=== PATIENT | male | born 1965 | race Caucasian/White ===

== ENCOUNTER 2024-02-16 14:23 | Emergency (ER) | payer MEDICAID ==
[~2024-02-16] VITALS: Ht 167.6 cm; Wt 82.0 kg
[2024-02-16 14:37] VITALS: BP 124/88; PULSE 75; RESP 16; TEMP 97.6; O2SAT 98
[2024-02-16] MEDS ORDERED: COMP1EAC MC (17:29)
[2024-02-16] MEDS ORDERED: NAPR-1176 MT (17:29)
[2024-02-16] MEDS ORDERED: APIX5TAB MT (17:42)
== END 2024-02-16 17:30 | disposition home or self-care (01) ==
LOC: ER 14:23
DX: I87.8 Other specified disorders of veins (principal); M79.605 Pain in left leg
CPT/HCPCS: 93971; 99284

== ENCOUNTER 2025-02-01 17:13 | Emergency (ER) | payer MEDICAID ==
[~2025-02-01] VITALS: Ht 162.6 cm; Wt 70.0 kg
[~2025-02-01 17:13] MED LIST: APIX5TAB MT; COMP1EAC MC
[2025-02-01 17:27] VITALS: O2SAT 95
[2025-02-01] MEDS ORDERED: BO1 TP (19:13)
[2025-02-01] MEDS: BACITRACIN ZINC OINT UDPKT TOP ONE (19:58)
[2025-02-01 19:59] VITALS: BP 133/78; PULSE 61; RESP 20; TEMP 36.9; O2SAT 97
== END 2025-02-01 20:00 | disposition home or self-care (01) ==
LOC: ER 17:13
DX: S61.412A Laceration without foreign body of left hand, initial encounter (principal); Z79.01 Long term (current) use of anticoagulants; Z79.899 Other long term (current) drug therapy; W45.8XXA Other foreign body or object entering through skin, initial encounter; Y93.89 Activity, other specified; Y92.89 Other specified places as the place of occurrence of the external cause; Y99.8 Other external cause status
CPT/HCPCS: 99282; Z7610 ×2

== ENCOUNTER 2025-10-18 13:19 | Emergency (ER) | payer MEDICAID ==
[~2025-10-18] VITALS: Ht 167.6 cm; Wt 81.0 kg
[~2025-10-18 13:19] MED LIST changes: +BO1 TP
[2025-10-18 13:34] VITALS: TEMP 36.8; O2SAT 99
[2025-10-18] MEDS ORDERED: ACET-2708 MT (16:41)
[2025-10-18] MEDS: LIDOCAINE 5% PATCH TOP SCH (16:48)
[2025-10-18] MEDS: KETOROLAC 30MG/ML VIAL IM ONE (16:48)
[2025-10-18 16:59] VITALS: BP 142/94; PULSE 62; RESP 16; O2SAT 100
== END 2025-10-18 17:05 | disposition home or self-care (01) ==
LOC: ER 13:19
DX: M25.551 Pain in right hip (principal); Z79.01 Long term (current) use of anticoagulants; Z79.899 Other long term (current) drug therapy
CPT/HCPCS: 99284; 73552; 72170; 96372; J1885